=== PATIENT | female | born 1950 | race Caucasian/White ===

== ENCOUNTER 2017-03-02 09:35 | Emergency (ER) | payer MEDICARE, OTHER ==
--- NOTE | 2017-03-02 10:12 | PHYS DOC ---
General Chief Complaint: HAND PROBLEM Stated Complaint: HAND INJURY Time Seen by MD: 09:55 Source: patient Exam Limitations: no limitations Problems: History of Present Illness Initial Comments Patient is a 66-year-old female who comes in ED complaining of right hand pain. Patient states that yesterday she fell to her outstretched right hand hyperextending at the metacarpophalangeal joints. She has dorsal right hand and proximal phalanx pain and swelling. She's been taking Tylenol but the pain has persisted and she has come for evaluation to see if she broke anything. No numbness tingling weakness or radiating symptoms she can move all of her fingers at all of the joints. She denies any other injuries from the fall. Onset: yesterday Severity: moderate Pain/Injury Location: right 3rd finger, right 4th finger Method of Injury: fell, twisted Modifying Factors: worse with jarring, worse with movement Allergies: Coded Allergies: eucalyptus (Verified Allergy, Unknown, 03/02/17) Past Medical History Medical History: other (RA) Surgical History: noncontributory Social History Smoker: non-smoker Alcohol: none Drugs: none Review of Systems Constitutional: denies chills, denies fever Respiratory: denies cough, denies shortness of breath Cardiovascular: denies chest pain, denies palpitations Genitourinary: denies dysuria, denies frequency Musculoskeletal: see HPI Skin: see HPI Psychiatric/Neurological: see HPI Physical Exam General Appearance: WD/WN, no apparent distress Neck: non-tender, supple Cardiovascular/Respiratory: normal peripheral pulses, no respiratory distress Shoulder: normal inspection, non-tender, no evidence of injury Elbow/Forearm: normal inspection, non-tender, no evidence of injury Wrist: normal inspection, non-tender, no evidence of injury Hand: swelling (right hand: Third and fourth digits are swollen and bruised, ligaments and tendon complexes are intact no palpable bony deformity extremity is neurovascularly intact.) Neurologic/Tendon: normal sensation, normal motor functions, normal tendon functions, responds to pain, no evidence tendon injury Psychiatric: alert, oriented x 3 Skin: normal color, warm/dry Orders, Labs, Meds PATIENT: GIOVANNY QUINTEROS ACCOUNT: [id number] : 1950 LOCATION: ER AGE: 66 SEX: F EXAM STATUS: REG ER ORD. PHYSICIAN: SHARMAINE RUBALCAVA DO REASON: fall, pain PROCEDURE: HAND RIGHT 3V Right hand, 3 views, 03/02/2017: History: Fall, pain No fracture or dislocation is identified. There are mild degenerative changes at scattered interphalangeal joints. IMPRESSION: No acute bony abnormality is detected. DICTATED AND SIGNED BY: ALLISON CAMPOS MD DATE: 03/02/17 1022 CC: SHIRLEY ARGUETA DO; SHARMAINE RUBALCAVA DO ~ Right third finger splinted neurovascularly intact after splint placed. Departure Time of Disposition: 10:40 Disposition: 01 HOME, SELF-CARE Diagnosis: Sprain R 3-4 fingers, fall Condition: GOOD Patient Instructions: RICE - Routine Care for Injuries, [id number] Additional Instructions: SUMIT, see handout. Wear metal finger splint as needed. Prescription: Sterling 5 mg quantity 20 Follow-up with your doctor in 10-14 days for recheck. Return to ED with new or changing symptoms. SHARMAINE RUBALCAVA DO Mar 02, 2017 10:12
--- NOTE | 2017-03-02 10:26 | RAD ---
Right hand, 3 views, 03/02/2017: History: Fall, pain No fracture or dislocation is identified. There are mild degenerative changes at scattered interphalangeal joints. IMPRESSION: No acute bony abnormality is detected.
[2017-03-02] MEDS ORDERED: HYDR-971 PO (10:40)
[2017-03-02 10:48] VITALS: BP 123/69
== END 2017-03-02 10:48 | disposition home or self-care (01) ==
LOC: ER 09:35
DX: S63.632A Sprain of interphalangeal joint of right middle finger, initial encounter (principal); S63.634A Sprain of interphalangeal joint of right ring finger, initial encounter; M06.9 Rheumatoid arthritis, unspecified; Z91.048 Other nonmedicinal substance allergy status; W19.XXXA Unspecified fall, initial encounter; Y93.89 Activity, other specified; Y99.8 Other external cause status; Y92.89 Other specified places as the place of occurrence of the external cause
CPT/HCPCS: 29130; 73130; 99284-25

== ENCOUNTER 2018-11-12 08:59 | Emergency (ER) | payer MEDICARE, MEDICAID ==
[~2018-11-12] VITALS: Ht 162.6 cm; Wt 85.8 kg
[~2018-11-12 08:59] MED LIST: HYDR-3165 PO
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
[2018-11-12] MEDS ORDERED: KETOROLAC 60 MG/2 ML VIAL. IM ONE (10:00)
--- NOTE | 2018-11-12 10:22 | RAD ---
CT HEAD INDICATION: Headache for 5 weeks COMPARISON: None Available. Exposure: One or more of the following individualized dose reduction techniques were utilized for this examination: 1. Automated exposure control 2. Adjustment of the mA and/or kV according to patient size 3. Use of iterative reconstruction technique TECHNIQUE: 5 mm contiguous axial images were obtained from the skull base to the vertex in both bone and soft tissue algorithm. FINDINGS: Mild bilateral periventricular white matter hypodensities likely chronic small vessel ischemic disease. No evidence of acute intracranial hemorrhage. No extra-axial fluid collections. No mass effect or midline shift. Ventricular size is appropriate. Basal cisterns are patent. No fractures identified.Gonzales-white differentiation is preserved.Globes and orbits are within normal limits. Paranasal sinuses and mastoid air cells are clear. IMPRESSION: No acute intracranial findings. Electronically signed by: Osman Montez MD (11/12/2018 10:19 AM) [facility]
[2018-11-12] MEDS ORDERED: BUTA1TAB23 PO (11:48)
[2018-11-12 11:50] VITALS: BP 140/72
== END 2018-11-12 11:55 | disposition home or self-care (01) ==
LOC: ER 08:59
DX: R51 Headache (principal); E11.9 Type 2 diabetes mellitus without complications; Z88.8 Allergy status to other drugs, medicaments and biological substances
CPT/HCPCS: 70450; 96372; 99284; J1885

== ENCOUNTER → 2018-12-12 | Outpatient (CLI) | payer MEDICARE, MEDICAID ==
[2018-11-12 11:50] VITALS: BP 140/72
[~2018-12-12] MED LIST changes: +BUTA1TAB23 PO
--- NOTE | 2018-12-13 08:26 | RAD ---
EXAM: Ct Cervical Spine Without Iv Contrast CLINICAL HISTORY: Cervical radiculopathy COMPARISON: None available. TECHNIQUE: Helical CT of the cervical spine was performed. Axial, coronal and sagittal reformatted images were also performed. PQRS compliance statement - One or more of the following individualized dose reduction techniques were utilized for this study: 1. Automated exposure control 2. Adjustment of the mA and/or kV according to patient size 3. Use of iterative reconstruction technique FINDINGS: Vertebral body heights are preserved. Mild straightening of the normal cervical lordosis. Approximately 2 mm anterolisthesis of C7 on T1. Moderate disc height loss at C5-6 and C6-7 as well as C7-T1. Small anterior and posterior endplate osteophytes are seen most prominent C4-5, C5-6 and C6-7. Atlantodental degenerative changes are seen. Predental space is normal. No significant prevertebral soft tissue swelling. C2-C3: Mild uncovertebral hypertrophy and paracentral disc protrusion results in mild central canal stenosis without significant neural foraminal narrowing. C3-C4: Posterior disc osteophyte complex with left greater than right uncovertebral hypertrophy and advanced facet degenerative changes results in mild central canal stenosis, moderate to severe left neural foraminal narrowing and mild left neural foraminal narrowing. C4-C5: Small posterior disc osteophyte complex with left greater than right uncovertebral hypertrophy and severe left facet degenerative changes results in moderate left and mild right neural foraminal narrowing as well as mild central canal stenosis. C5-C6: Large posterior disc osteophyte complex with prominent uncovertebral hypertrophy and right paracentral posterior endplate proliferative change results in moderate central canal stenosis and moderate bilateral neural foraminal narrowing. C6-C7: Posterior disc osteophyte complex with bilateral uncovertebral hypertrophy results in mild central canal stenosis and moderate bilateral neural foraminal narrowing. C7-T1: Trace anterolisthesis of C7 on T1 with mild facet degenerative changes results in no significant central canal stenosis or neural foraminal narrowing. IMPRESSION: 1. Multilevel spondylosis as above, most prominent at C5-6 2. Negative acute fracture 3. Approximately 2 mm anterolisthesis of C7 on T1 with mild degenerative change. Electronically signed by: Clement Terrazas MD (12/13/2018 8:24 AM) [facility]
--- NOTE | 2018-12-13 08:34 | RAD ---
EXAM: CT lumbar spine without IV contrast CLINICAL HISTORY: Lumbar radiculopathy COMPARISON: None available. TECHNIQUE: Helical CT was performed through the lumbar spine. Axial, coronal and sagittal reformatted images were generated. PQRS compliance statement - One or more of the following individualized dose reduction techniques were utilized for this study: 1. Automated exposure control 2. Adjustment of the mA and/or kV according to patient size 3. Use of iterative reconstruction technique FINDINGS: There are 5 nonrib-bearing lumbar-type vertebral bodies. Straightening of the normal lumbar lordosis. Trace retrolisthesis of L5 on S1 and L3 on L4. Decreased bone mineral density. Vertebral body heights are preserved. Severe disc height loss at L2-3 and L4-5. Moderate to severe disc height loss at T12-L1, L1-L2, L5-S1 and L2 moderate disc height loss of L3-4. Multilevel endplate proliferative changes are seen. Degenerative changes between the posterior spinous processes of L3-4 with associated small cystic change may be seen with Baastrup's disease. T12-L1: No significant central canal stenosis or neural foraminal narrowing. L1-L2: Generalized disc bulge with ligamentum flavum hypertrophy and facet degenerative changes results in mild central canal stenosis and mild bilateral neural foraminal narrowing. L2-L3: Posterior disc osteophyte complex with generalized disc bulge, ligamentum flavum hypertrophy and facet degenerative changes results in mild central canal stenosis and mild bilateral neural foraminal narrowing. L3-L4: Generalized disc bulge, eccentric to the left with ligamentum flavum hypertrophy and facet degenerative changes and prominent epidural fat results in likely severe central canal stenosis with thecal sac measuring approximately 5-6 mm in AP dimension (series 2 image 57) with moderate left and mild right neural foraminal narrowing. L4-L5: Generalized disc bulge with diffuse endplate proliferative changes, ligamentum flavum hypertrophy and left greater than right facet degenerative changes also results in severe central canal stenosis with the thecal sac measuring approximately 7-8 mm in AP dimension, moderate to severe left and moderate right neural foraminal narrowing. L5-S1: Trace retrolisthesis of L5 on S1 with associated generalized disc bulge, ligamentum flavum hypertrophy and facet degenerative changes results in moderate left and moderate to severe right neural foraminal narrowing. Atherosclerotic calcifications of the aorta are seen. IMPRESSION: Multilevel spondylosis as described in detail above. This is most prominent at L3-4 and L4-5. Trace retrolisthesis of L5 on S1 and L3 and L4. Electronically signed by: Clement Terrazas MD (12/13/2018 8:31 AM) [facility]
== END | disposition home or self-care (01) ==
LOC: CT 16:46
PROVIDERS: ATTEND Psychiatry & Neurology Neurology
DX: M50.11 Cervical disc disorder with radiculopathy, high cervical region (principal); M47.22 Other spondylosis with radiculopathy, cervical region; M47.27 Other spondylosis with radiculopathy, lumbosacral region; M47.814 Spondylosis without myelopathy or radiculopathy, thoracic region; M48.02 Spinal stenosis, cervical region; M51.36 Other intervertebral disc degeneration, lumbar region; M48.07 Spinal stenosis, lumbosacral region; M53.87 Other specified dorsopathies, lumbosacral region; M25.78 Osteophyte, vertebrae; M89.38 Hypertrophy of bone, other site; I70.0 Atherosclerosis of aorta
CPT/HCPCS: 72125; 72131

== ENCOUNTER 2019-03-30 00:51 | Observation (INO) | payer MEDICARE, MEDICAID ==
[~2019-03-30] VITALS: Ht 162.6 cm; Wt 83.0 kg
--- NOTE | 2019-03-30 01:13 | PHYS DOC ---
Past History Past Medical History: Diabetes, High Cholesterol, Hypertension, Other Additional Past Medical Histor: TENSION HEADACHES Past Surgical History: Cholecystectomy, Knee Replacement, Other Additional Past Surgical Histo: BREAST REDUCTION Smoking: Non-smoker Alcohol Use: None Drug Use: None Adult General Chief Complaint Chief Complaint: CHEST PAIN HPI HPI 68-year-old female presents with chest pain which started tonight prior to arrival. Reports sharp pain underneath her left breast which is now resolved. Denies diaphoresis or shortness of air. Denies leg swelling or calf tenderness. Denies nausea or vomiting. Cardiac risk factors including DM, HTN, hyperchol, and family history. Patient also reports family history of DVT/PE. Review of Systems Review of Systems Constitutional: Denies fever or chills Eyes: Denies redness or eye pain HENT: Denies nasal congestion or sore throat Respiratory: Denies cough or shortness of breath Cardiovascular: Reports chest pain; denies palpitations GI: Denies abdominal pain, nausea, or vomiting : Denies dysuria or hematuria Musculoskeletal: Denies back pain or joint pain Integument: Denies rash or skin lesions Neurologic: Denies headache, focal weakness or sensory changes Complete systems were reviewed and found to be within normal limits, except as documented in this note. Current Medications Current Medications Current Medications Medications (Trade) Dose Ordered Sig/Nestor Start Time Stop Time Status Last Admin Dose Admin Aspirin (Adrian Aspirin) 325 mg 1X ONCE 03/30/19 01:15 03/30/19 01:16 Sodium Chloride 1,000 ml @ 1,000 mls/hr 1X ONCE 03/30/19 01:15 03/30/19 02:14 03/30/19 01:08 1,000 MLS/HR Allergies Allergies Allergies Coded Allergies Type Severity Reaction Last Updated Verified Ymxbqcd-Hsk-Eck Reductase Inhibitor Allergy Mild CRAMPS 03/30/19 Yes eucalyptus Allergy Unknown 03/02/17 Yes Physical Exam Physical Exam Constitutional: Well developed, well nourished, anxious, non-toxic appearance HENT: Normocephalic, atraumatic, oropharynx moist Eyes: Conjunctiva normal, no discharge Neck: Normal range of motion, no tenderness, supple Cardiovascular: Heart rate normal, regular rhythm Lungs & Thorax: Bilateral breath sounds clear to auscultation, no wheezing Abdomen: Soft, no tenderness Skin: Warm, dry, no erythema, no rash Extremities: No tenderness, ROM intact, no edema Neurologic: Alert and oriented X 3, no focal deficits noted Psychologic: Affect anxious, judgement normal Current Patient Data Vital Signs Vital Signs Date Time Temp Pulse Resp B/P (MAP) Pulse Ox O2 Delivery O2 Flow Rate FiO2 03/30/19 01:01 60 18 98 Room Air EKG EKG @0057 NSR at 60bpm, NO ST elevation, QRS 96ms, QT/QTc 408/408ms Radiology/Procedures Radiology/Procedures CXR 2 view (preliminary interpretation by ED physician) No acute process Course & Med Decision Making Course & Med Decision Making Pertinent Labs and Imaging studies reviewed. (See chart for details) Patient presents with chest pain. Cardiac risk factors noted. Patient does have family history of DVT/PE. EKG stable. Labs obtained and posted to chart. Hypomagnesemia addressed. Initial Troponin negative. D-dimer elevated. Creat elevated (improved in comparison to prior per [employer] review). Unable to obtain CTA due to poor GFR. Chest x-ray stable. VQ scan ordered for AM. HEART score 5. Patient requiring admission for further evaluation and treatment. Discussed with Dr. Brown (hospitalist) who is in agreement with admission. Discussed findings and plan with patient, who acknowledges understanding and agreement. Dragon Disclaimer Dragon Disclaimer This electronic medical record was generated, in whole or in part, using a voice recognition dictation system. Departure Departure: Impression: Primary Impression: Chest pain Additional Impressions: Hypomagnesemia Elevated d-dimer Disposition: ADMITTED INPATIENT Admitting Physician: Nithin Brown Condition: GUARDED Referrals: SHIRLEY ARGUETA DO (PCP) HEART Score for Chest Pain PTs The HEART Score for CP Pts HEART Score for Chest Pain: HEART Score for Chest Pain Response (Comments) Value History Moderately Suspicious 1 ECG Normal 0 Age > 65 2 Risk Factors >3 Risk Factors or Hx CAD 2 Troponin < Normal Limit 0 Total 5 Risk Factors: Risk Factors: DM, Current or recent (<one month) smoker, HTN, HLP, family history of CAD, obesity. Risk Scores: Score 0 - 3: 2.5% MACE over next 6 weeks - Discharge Home Score 4 - 6: 20.3% MACE over next 6 weeks - Admit for Clinical Observation Score 7 - 10: 72.7% MACE over next 6 weeks - Early Invasive Strategies Problem Qualifiers Primary Impression: Chest pain Chest pain type: unspecified Qualified Codes: R07.9 - Chest pain, unspecified BRANDON VELASQUEZ DO Mar 30, 2019 01:13
[2019-03-30] MEDS ORDERED: ASPIRIN 325 MG TABLET PO ONE (01:15)
[2019-03-30] MEDS ORDERED: IV NORMAL SALINE 1,000ML 1,000 ML IV ONE (01:15)
[2019-03-30 01:28] LABS: BASO % 0 % (0-3); EOS # 0.1 x10^3/uL (0.0-0.7); EOS % 2 % (0-3); HEMATOCRIT 35.6 % (36.0-47.0); HEMOGLOBIN 11.6 g/dL (12.0-15.5); LYMPH # 1.6 x10^3/uL (1.0-4.8); LYMPH % 27 % (24-48); MEAN CORPUSCULAR HEMOGLOBIN 30 pg (25-35); MEAN CORPUSCULAR HGB CONC 33 g/dL (31-37); MEAN CORPUSCULAR VOLUME 92 fL (79-100); MONO # 0.6 x10^3/uL (0.0-1.1); MONO % 10 % (0-9); NEUT # 3.7 x10^3uL (1.8-7.7); NEUT % 61 % (31-73); PLATELET COUNT 221 x10^3/uL (140-400); RED BLOOD COUNT 3.88 x10^6/uL (3.50-5.40); RED CELL DISTRIBUTION WIDTH 13.7 % (11.5-14.5); WHITE BLOOD COUNT 6.1 x10^3/uL (4.0-11.0)
[2019-03-30 01:53] LABS: ALBUMIN 3.4 g/dL (3.4-5.0); CALCIUM 8.5 mg/dL (8.5-10.1); CREATININE 1.7 mg/dL (0.6-1.0); GFR 29.8; MAGNESIUM 1.6 mg/dL (1.8-2.4); POTASSIUM 3.5 mmol/L (3.5-5.1); TOTAL BILIRUBIN 0.3 mg/dL (0.2-1.0); TOTAL PROTEIN 6.7 g/dL (6.4-8.2)
[2019-03-30] MEDS ORDERED: MAGNESIUM SULFATE 2GM 50 ML IV ONE (02:30)
[2019-03-30] MEDS ORDERED: DEXTROSE 50% 25 GM / 50ML DISP.SYRIN. IV PRN (02:30)
[2019-03-30] MEDS ORDERED: ONDANSETRON PF 4 MG/2 ML VIAL. IV PRN (02:30)
--- NOTE | 2019-03-30 03:11 | RAD ---
CHEST PA LATERAL History: Chest pain Comparison: None. Findings: No consolidation or pleural effusion. Normal heart size. Surgical clips upper abdomen. No pneumothorax. DISH related changes of the thoracic spine. Impression: 1. No acute cardiopulmonary process. Electronically signed by: Alexandr Mendez DO (03/30/2019 3:08 AM) [id number]
[2019-03-30 04:00] VITALS: BP 150/80
[2019-03-30] MEDS ORDERED: CYCL-331 PO (05:46)
[2019-03-30] MEDS ORDERED: CITA20TA6 PO (05:46)
[2019-03-30] MEDS ORDERED: LOSA100T14 PO (05:46)
[2019-03-30] MEDS ORDERED: OXYC5TAB4 PO (05:46)
[2019-03-30] MEDS ORDERED: DUREZOL OS (05:46)
[2019-03-30] MEDS ORDERED: MOXI3DRO OS (05:46)
[2019-03-30] MEDS ORDERED: SITA50TA PO (05:46)
[2019-03-30] MEDS ORDERED: ESOM40CA PO (05:46)
[2019-03-30] MEDS ORDERED: HYDR12.572 PO (05:46)
[2019-03-30] MEDS ORDERED: GABA100C81 PO (05:46)
[2019-03-30] MEDS ORDERED: METO-239 PO (05:46)
[2019-03-30] MEDS ORDERED: BROM5DRO3 OS (05:46)
[2019-03-30] MEDS ORDERED: GLIM4TAB4 PO (05:46)
[2019-03-30] MEDS ORDERED: INSULIN LISPRO 300 UNITS/3 ML VIAL. SQ SCH (08:00)
[2019-03-30 08:42] VITALS: BP 128/73
[2019-03-30 11:13] VITALS: BP_SYST 122; BP_SYST 133; BP_DIAS 61; BP_DIAS 71
--- NOTE | 2019-03-30 13:27 | SSS ---
ADMIT DATE: 03/30/2019 HISTORY OF PRESENT ILLNESS: The patient is a 68-year-old female patient who came to the Emergency Room early this morning with a complaint of chest pain that started just minutes prior to arrival. She described it as sharp underneath her left breast that has resolved by the time she arrived to the hospital. Denied any shortness of breath. Denied any nausea, vomiting, diaphoresis or referral of the pain. She has multiple risk factors for coronary artery disease. She also reports family history of DVT and PE. She was investigated extensively. Her EKG showed that she was in normal sinus rhythm at 60 beats per minute. Her chest x-ray was unremarkable. Her first set of cardiac enzyme was less than 0.017. She has 2 more sets of cardiac enzymes that rule out acute myocardial infarction and a decision was made to discharge her home to follow with her primary digital analyst. PAST MEDICAL HISTORY: Significant for hypertension, hyperlipidemia, type 2 diabetes mellitus, chronic kidney disease and osteoarthritis. PAST SURGICAL HISTORY: Significant for right total knee arthroplasty, left eye cataract extraction, cholecystectomy, appendectomy and breast reduction surgery. ALLERGIES: SHE IS ALLERGIC TO STATINS AND EUCALYPTUS. MEDICATIONS: She is currently on following medications: She is on cyclobenzaprine 10 mg as needed, metoprolol succinate 25 mg daily, losartan potassium 100 mg daily, hydrocodone/APAP for Esmond one tablet every 6 hours as needed, oxycodone 5 mg, she takes 10 mg every 6 hours as needed. She is on Fioricet 1 tablet every 4 hours as needed for headache, gabapentin 300 mg twice a day, citalopram hydrobromide 20 mg daily, hydrochlorothiazide 25 mg once a day, moxifloxacin 1 drop to both eyes twice a day, bromfenac sodium for BromSite one drop to the left eye twice a day. She is on Nexium 40 mg once a day, sitagliptin phosphate for Januvia 50 mg once a day, glimepiride 4 mg daily, Durezol 1 drop to left eye daily. FAMILY HISTORY: She has 4 brothers, one has coronary artery disease and is status post PCI with stent deployment at the age of 51. One sister has SLE and she is 53 years old. The other sister has diabetes. Her father at age of 87 because of COPD and mother at age of 77 because of COPD complication. SOCIAL HISTORY: She is , lives alone. She has 2 sons and 1 daughter. She never smoked, does not drink alcohol or use any recreational drugs. She is a retired registered nurse. REVIEW OF SYSTEMS: Unremarkable. PHYSICAL EXAMINATION: GENERAL: When I examined her, she looked well and was clearly in no apparent respiratory distress, slightly pale, but no jaundice, cyanosis or thyromegaly. No jugular venous distention. No limb edema. VITAL SIGNS: Her heart rate was 60, blood pressure 128/73, temperature was 97.8, respiratory rate was 18 and oxygen saturation was 96%. HEAD, EYES, EARS, NOSE AND THROAT: Showed normocephalic, atraumatic. NECK: Supple. HEART: Showed normal first and second heart sounds. No gallop or murmur. CHEST: Clear to auscultation. No crepitation or rhonchi. ABDOMEN: Distended, soft, nontender. No guarding or rigidity. No organomegaly. All hernial orifices intact. Bowel sounds normal. NEUROLOGIC: She was awake, alert, responding appropriately. All cranial nerves intact. She moves extremities without difficulty. She ambulates without assistance or assistive devices. LABORATORY DATA: Showed a white cell count 6100, hemoglobin 11.6, hematocrit 35.6, MCV 92 and platelet count 221,000. Her chemistry showed a serum sodium 140, potassium 3.5, chloride 105, bicarbonate 24, anion gap of 11, BUN 33, creatinine 1.7, estimated GFR was 29 mL per minute, glucose 172, calcium was 8.5, magnesium was 1.6. Total bilirubin, AST, ALT, alkaline phosphatase were normal. Total protein was 6.7, albumin was 3.4. Lipase was 321. Prothrombin time, INR and aPTT were normal. D-dimer was high at 0.8. Chest x-ray showed no consolidation or pleural effusion, normal heart size. Surgical clips in upper abdomen. No pneumothorax. No acute cardiopulmonary process. She has 3 sets of cardiac enzymes that ruled out myocardial infarction. ASSESSMENT AND PLAN: Chest pain, atypical, lasted only for a few seconds, acute myocardial infarction ruled out. Has multiple other medical problems including type 2 diabetes, hypertension, hyperlipidemia, osteoarthritis and chronic kidney disease. She apparently had followed with her primary digital analyst and apparently had a stress test done about 2 years ago. The patient was discharged and advised to follow with her primary digital analyst and primary care physician and continue all her current medications. ANTIONETTE LORD MD DR: MILA/didier JOB#: [id number] / [id number]
--- NOTE | 2019-03-31 03:54 | EKG ---
[address] [address] Test Date: 2019-03-30 Test Time: 00:57:09 Pat Name: GIOVANNY QUINTEROS Department: Room: Gender: F Assurance Analyst: : 1950 Requested By: BRANDON VELASQUEZ Order Number: [id number] Reading MD: Measurements Intervals [place] Rate: 60 P: 4 TX: 136 QRS: 10 QRSD: 96 T: 25 QT: 408 QTc: 408 Interpretive Statements SINUS RHYTHM NORMAL ECG RI6.01 No previous ECG available for comparison
== END 2019-03-30 13:10 | disposition home or self-care (01) ==
LOC: ER 00:51 → 1 SOUTH 02:33
PROVIDERS: ADMIT Internal Medicine; ATTEND Internal Medicine
DX: R07.89 Other chest pain (principal); E83.42 Hypomagnesemia; R79.1 Abnormal coagulation profile; I12.9 Hypertensive chronic kidney disease with stage 1 through stage 4 chronic kidney disease, or unspecified chronic kidney disease; E11.22 Type 2 diabetes mellitus with diabetic chronic kidney disease; N18.9 Chronic kidney disease, unspecified; M19.90 Unspecified osteoarthritis, unspecified site; E78.5 Hyperlipidemia, unspecified; E78.00 Pure hypercholesterolemia, unspecified; Z86.718 Personal history of other venous thrombosis and embolism; Z86.711 Personal history of pulmonary embolism; Z96.651 Presence of right artificial knee joint; Z98.42 Cataract extraction status, left eye; Z90.49 Acquired absence of other specified parts of digestive tract; Z79.84 Long term (current) use of oral hypoglycemic drugs; Z79.899 Other long term (current) drug therapy; Z88.8 Allergy status to other drugs, medicaments and biological substances
CPT/HCPCS: 36415; 71046; 80053; 82553; 82947; 83690; 83735; 83880; 84484; 85025; 85379; 85610; 85730; 93005; 96365; G0378; G0379; J3475; J1815; J7030

== ENCOUNTER 2019-06-04 10:00 | Emergency (ER) | payer MEDICARE, MEDICAID ==
[~2019-06-04] VITALS: Ht 162.6 cm; Wt 85.8 kg
[~2019-06-04 10:00] MED LIST changes: +BROM5DRO3 OS; +CITA20TA6 PO; +CYCL-331 PO; +DUREZOL OS; +ESOM40CA PO; +GABA100C81 PO; +GLIM4TAB8 PO; +HYDR12.572 PO; +LOSA100T14 PO; +METO-239 PO; +MOXI3DRO OS; +OXYC5TAB4 PO; +SITA50TA PO
[2019-06-04 10:16] VITALS: BP 150/78
[2019-06-04] MEDS ORDERED: AMOX1TAB61 PO (10:22)
--- NOTE | 2019-06-04 10:32 | PHYS DOC ---
Past History Past Medical History: Diabetes, High Cholesterol, Hypertension, Other Additional Past Medical Histor: TENSION HEADACHES Past Surgical History: Cholecystectomy, Knee Replacement, Other Additional Past Surgical Histo: BREAST REDUCTION Smoking: Non-smoker Alcohol Use: None Drug Use: None Adult General Chief Complaint Chief Complaint: FOOT INJURY PAIN HPI HPI Patient is a 69-year-old female presenting with left foot and redness. She did go sledding over the weekend she was wearing boots for about 4 hours and then over the last couple of days she noticed some medial left foot redness and pain just underneath the medial malleolus no fever no trauma she has not fallen down. She doesn't history of diabetes she does say she has neuropathy she does take Lantus and multiple other medications Review of Systems Review of Systems Constitutional: Denies fever or chills [] Eyes: Denies change in visual acuity, redness, or eye pain [] HENT: Denies nasal congestion or sore throat [] Neurologic: Denies headache, focal weakness or sensory changes [] Endocrine: Denies polyuria or polydipsia [] All other systems were reviewed and found to be within normal limits, except as documented in this note. Allergies Allergies Allergies Coded Allergies Type Severity Reaction Last Updated Verified Ibrxxkj-Rvr-Nfk Reductase Inhibitor Allergy Mild CRAMPS 03/30/19 Yes eucalyptus Allergy Unknown 03/02/17 Yes Physical Exam Physical Exam Constitutional: Well developed, well nourished, no acute distress, non-toxic appearance. [] HENT: Normocephalic, atraumatic, bilateral external ears normal, oropharynx moist, no oral exudates, nose normal. [] Eyes: PERRLA, EOMI, conjunctiva normal, no discharge. [] Pulmonary: Normal respiratory effort no increased work of breathing no obvious chest wall trauma Abdomen: Bowel sounds normal, soft, no tenderness, no masses, no pulsatile masses. [] Skin: There is an approximately 2 x 2 centimeters area of erythema with some warmth really no fluctuance minimal induration mildly tender to the medial aspect of the left foot there is no skin breakdown it is just underneath the medial malleolus] Back: No tenderness, no CVA tenderness. [] Extremities: No edema or calf tenderness or swelling Neurologic: Alert and oriented X 3, normal motor function, normal sensory function, no focal deficits noted. [] Psychologic: Affect normal, judgement normal, mood normal. [] Current Patient Data Vital Signs Vital Signs Date Time Temp Pulse Resp B/P (MAP) Pulse Ox O2 Delivery O2 Flow Rate FiO2 06/04/19 10:16 97.8 62 16 98 Room Air EKG EKG [] Radiology/Procedures Radiology/Procedures [] Course & Med Decision Making Course & Med Decision Making Pertinent Labs and Imaging studies reviewed. 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 Dragon Disclaimer Dragon Disclaimer This electronic medical record was generated, in whole or in part, using a voice recognition dictation system. Departure Departure: Impression: Primary Impression: Cellulitis Disposition: HOME, SELF-CARE Condition: STABLE Patient Instructions: Cellulitis, Ppdu-nx-Sdzs Scripts Amoxicillin/Potassium Clav (AUGMENTIN 875-125 TABLET) 1 Each Tablet 1 TAB PO BID for cellulitis for 10 Days, #20 TAB 0 Refills Prov: KISHA CARRILLO MD 06/04/19 KISHA CARRILLO MD Jun 04, 2019 10:32
== END 2019-06-04 10:30 | disposition home or self-care (01) ==
LOC: ER 10:00
DX: L03.116 Cellulitis of left lower limb (principal); E11.9 Type 2 diabetes mellitus without complications; E78.00 Pure hypercholesterolemia, unspecified; I10 Essential (primary) hypertension; Z88.8 Allergy status to other drugs, medicaments and biological substances
CPT/HCPCS: 99283

== ENCOUNTER → 2019-06-26 | Outpatient (CLI) | payer MEDICARE, MEDICAID ==
[2019-06-04 10:16] VITALS: BP 150/78
[~2019-06-26] MED LIST changes: +AMOX1TAB61 PO
--- NOTE | 2019-06-26 13:17 | RAD ---
EXAM: CT HEAD WITHOUT CONTRAST. HISTORY: Headache. TECHNIQUE: Computed tomography of the head was performed without intravenous contrast. One or more of the following individualized dose reduction techniques were utilized for this examination: 1. Automated exposure control. 2. Adjustment of the mA and/or kV according to patient size. 3. Use of iterative reconstruction technique. COMPARISON: 11/12/2018. FINDINGS: There is no intracranial hemorrhage. Gonzales-white differentiation is preserved. Prominence of the lateral ventricles and hemispheric sulci indicates mild atrophy for patient age. The visualized paranasal sinuses appear clear. The orbits are unremarkable. The temporal bones are unremarkable. The calvarium reveals no suspicious lesions. There are atherosclerotic calcifications of the internal carotid and vertebral arteries. IMPRESSION: 1. No acute intracranial findings. Electronically signed by: Dirk Patel MD (06/26/2019 1:14 PM) [id number]
== END | disposition home or self-care (01) ==
LOC: CT 12:28
PROVIDERS: ATTEND Family Medicine
DX: I65.23 Occlusion and stenosis of bilateral carotid arteries (principal)
CPT/HCPCS: 70450

== ENCOUNTER 2019-12-01 15:03 | Emergency (ER) | payer MEDICAID, MEDICARE ==
[~2019-12-01] VITALS: Ht 160 cm; Wt 88.9 kg
--- NOTE | 2019-12-01 15:31 | PHYS DOC ---
Past History Past Medical History: Diabetes, Migraines Additional Past Medical Histor: TENSION HEADACHES Past Surgical History: Cholecystectomy, Tubal ligation Additional Past Surgical Histo: BREAST REDUCTION Smoking: Non-smoker Alcohol Use: None Drug Use: None General Adult EDM: Chief Complaint: MECHANICAL FALL HPI: HPI: Patient is a 69 year old female who presents for evaluation of left elbow and shoulder pain. Patient had a mechanical fall just before arrival. She has a large abrasion to that elbow is complaining of left chest wall pain and shoulder pain. She denied hitting her head nor does she have any neck pain. She had no symptoms prior to the fall. Patient is unable to raise her arm above her head due to pain. She clearly states that her tetanus shot is up-to-date. Review of Systems: Review of Systems: Constitutional: Denies fever or chills Eyes: Denies change in visual acuity HENT: Denies nasal congestion or sore throat Respiratory: Denies cough or shortness of breath Cardiovascular: Denies chest pain or edema GI: Denies abdominal pain, nausea, vomiting, bloody stools or diarrhea : Denies dysuria Musculoskeletal: Denies back pain left shoulder and elbow pain Integument: Denies rash, abrasion Neurologic: Denies headache, focal weakness or sensory changes Endocrine: Denies polyuria or polydipsia Lymphatic: Denies swollen glands Psychiatric: Denies depression or anxiety Heart Score: Risk Factors: Risk Factors: DM, Current or recent (<one month) smoker, HTN, HLP, family history of CAD, obesity. Risk Scores: Score 0 - 3: 2.5% MACE over next 6 weeks - Discharge Home Score 4 - 6: 20.3% MACE over next 6 weeks - Admit for Clinical Observation Score 7 - 10: 72.7% MACE over next 6 weeks - Early Invasive Strategies Allergies: Allergies: Allergies Coded Allergies Type Severity Reaction Last Updated Verified Aowicdt-Nlo-Mns Reductase Inhibitor Allergy Mild CRAMPS 12/01/19 Yes eucalyptus Allergy Unknown 12/01/19 Yes Physical Exam: PE: Constitutional: Well developed, well nourished, mild acute distress, non-toxic appearance. [] HENT: Normocephalic, atraumatic, bilateral external ears normal, oropharynx moist, no oral exudates, nose normal. [] Eyes: PERRL, EOMI, conjunctiva normal, no discharge. [] Neck: Normal range of motion, no tenderness, supple, no stridor. [] Cardiovascular:Heart rate regular rhythm, no murmur [] Lungs & Thorax: Bilateral breath sounds clear to auscultation [] Abdomen: Bowel sounds normal, soft, no tenderness, no masses, no pulsatile masses. [] Skin: Warm, dry, no erythema, no rash, abrasion left elbow. [] Back: No tenderness. [] Extremities: moderate tenderness, no cyanosis, no clubbing, ROM left shoulder limited due to pain, mild edema. [] Neurologic: Alert and oriented, normal motor function, normal sensory function, no focal deficits noted. [] Psychologic: Affect normal, judgement normal, mood normal. [] Current Patient Data: Vital Signs: Vital Signs Date Time Temp Pulse Resp B/P (MAP) Pulse Ox O2 Delivery O2 Flow Rate FiO2 12/01/19 15:18 98.0 59 20 140/60 (86) 97 Room Air EKG: EKG: [] Radiology/Procedures: Radiology/Procedures: [place] [address] IMAGING REPORT Signed PATIENT: GIOVANNY QUINTEROS ACCOUNT: [id number] : 1950 LOCATION: ER AGE: 69 SEX: F EXAM STATUS: REG ER ORD. PHYSICIAN: CHAD DODGE DO REASON: fall, injury, left upper lobe chest pain PROCEDURE: CHEST AP ONLY CHEST AP ONLY History: Reason: fall, injury, left upper lobe chest pain / Spl. Instructions: / History: Comparison: None. Findings: No consolidation or pleural effusion. Normal heart size. No pneumothorax. Impression: 1. No acute cardiopulmonary process. Electronically signed by: Alexandr Mendez DO (12/01/2019 3:48 PM) [id number] DICTATED AND SIGNED BY: ALEXANDR MENDEZ DO DATE: 12/01/19 1548 CC: SHIRLEY ARGUETA DO; CHAD DODGE DO ~ [] Impressions: [address] [id number] IMAGING REPORT Signed PATIENT: GIOVANNY QUINTEROS ACCOUNT: [id number] : 1950 LOCATION: ER AGE: 69 SEX: F EXAM STATUS: REG ER ORD. PHYSICIAN: CHAD DODGE DO REASON: fall, injury, left elbow pain PROCEDURE: ELBOW LEFT 3V ELBOW LEFT 3V History: Reason: fall, injury, left elbow pain / Spl. Instructions: / History: Technique: 3 views left elbow. Comparison: None. Findings: Normal alignment. No fracture. No significant elbow joint effusion. Soft tissues unremarkable. Impression: 1. No acute osseous abnormality. Electronically signed by: Alexandr Mendez DO (12/01/2019 3:44 PM) [id number] DICTATED AND SIGNED BY: ALEXANDR MENDEZ DO DATE: 12/01/197 CC: SHIRLEY ARGUETA DO; CHAD DODGE DO ~ [place] [address] IMAGING REPORT Signed PATIENT: GIOVANNY QUINTEROS ACCOUNT: [id number] : 1950 LOCATION: ER AGE: 69 SEX: F EXAM STATUS: REG ER ORD. PHYSICIAN: CHAD DODGE DO REASON: fall, injury, left shoulder pain PROCEDURE: SHOULDER 2+V LEFT SHOULDER 2+V LEFT History: Reason: fall, injury, left shoulder pain / Spl. Instructions: / History: Technique: 3 views left shoulder. Comparison: None. Findings: Acute comminuted left posterior lateral humeral head fracture. No dislocation. Mild acromioclavicular DJD. Left basilar calcified ovary nodule, likely prior granulomatous disease. Impression: 1. Acute comminuted left posterior lateral humeral head fracture. Electronically signed by: Alexandr Mendez DO (12/01/2019 3:47 PM) [id number] DICTATED AND SIGNED BY: ALEXANDR MENDEZ DO DATE: 12/01/192 CC: SHIRLEY ARGUETA DO; CHAD DODGE DO ~ Course & Med Decision Making: Course & Med Decision Making Pertinent Labs and Imaging studies reviewed. (See chart for details) [] Dragon Disclaimer: Dragon Disclaimer: This electronic medical record was generated, in whole or in part, using a voice recognition dictation system. 1550 stable, single be given for comfort. Patient has a proximal left humerus fracture. She states he is leaving town in about 4 days. She will call and see Dr. Thomason in the office as soon as possible. Patient recommended to have no use of her left shoulder until cleared by her doctor. She will likely need physical therapy on that broken left humerus. Patient already has oxycodone she takes at home for chronic pain Departure Departure: Impression: Primary Impression: Fracture of proximal end of left humerus Qualified Codes: S42.202A - Unspecified fracture of upper end of left humerus, initial encounter for closed fracture Additional Impression: Left elbow contusion Qualified Codes: S50.02XA - Contusion of left elbow, initial encounter Disposition: HOME/RESIDENCE PRIOR TO ADM Condition: STABLE Referrals: SHIRLEY ARGUETA DO (PCP) GIOVANNI THOMASON MD Patient Instructions: Shoulder Fracture (Proximal Humerus or Glenoid)-[facility] Additional Instructions: Rest, ice and elevate the injured left shoulder. You have a fracture to the backside of your upper left humerus. Call and see your orthopedic surgeon right away and follow-up Justification of Admission: Justification of Admission: Justification of Admission Dx: N/A CHAD DODGE DO Dec 01, 2019 15:30
[2019-12-01 15:38] VITALS: BP 111/53
--- NOTE | 2019-12-01 15:47 | RAD ---
ELBOW LEFT 3V History: Reason: fall, injury, left elbow pain / Spl. Instructions: / History: Technique: 3 views left elbow. Comparison: None. Findings: Normal alignment. No fracture. No significant elbow joint effusion. Soft tissues unremarkable. Impression: 1. No acute osseous abnormality. Electronically signed by: Alexandr Mendez DO (12/01/2019 3:44 PM) [id number]
--- NOTE | 2019-12-01 15:50 | RAD ---
SHOULDER 2+V LEFT History: Reason: fall, injury, left shoulder pain / Spl. Instructions: / History: Technique: 3 views left shoulder. Comparison: None. Findings: Acute comminuted left posterior lateral humeral head fracture. No dislocation. Mild acromioclavicular DJD. Left basilar calcified ovary nodule, likely prior granulomatous disease. Impression: 1. Acute comminuted left posterior lateral humeral head fracture. Electronically signed by: Alexandr Mendez DO (12/01/2019 3:47 PM) [id number]
--- NOTE | 2019-12-01 15:51 | RAD ---
CHEST AP ONLY History: Reason: fall, injury, left upper lobe chest pain / Spl. Instructions: / History: Comparison: None. Findings: No consolidation or pleural effusion. Normal heart size. No pneumothorax. Impression: 1. No acute cardiopulmonary process. Electronically signed by: Alexandr Mendez DO (12/01/2019 3:48 PM) [id number]
[2019-12-01] MEDS ORDERED: BACITRACIN ZINC TOPICAL OINT PACKET. TP ONE (16:00)
== END 2019-12-01 16:28 | disposition home or self-care (01) ==
LOC: ER 15:03
DX: S42.292A Other displaced fracture of upper end of left humerus, initial encounter for closed fracture (principal); S50.02XA Contusion of left elbow, initial encounter; E11.9 Type 2 diabetes mellitus without complications; G43.909 Migraine, unspecified, not intractable, without status migrainosus; Z90.49 Acquired absence of other specified parts of digestive tract; Z98.51 Tubal ligation status; Z98.890 Other specified postprocedural states; Z88.8 Allergy status to other drugs, medicaments and biological substances; W18.39XA Other fall on same level, initial encounter; Y93.89 Activity, other specified; Y92.89 Other specified places as the place of occurrence of the external cause; Y99.8 Other external cause status
CPT/HCPCS: 71045; 73030; 73080; 99284

== ENCOUNTER 2020-01-10 07:27 | Emergency (ER) | payer MEDICAID, MEDICARE ==
[~2020-01-10] VITALS: Ht 160 cm; Wt 88.9 kg
[2020-01-10 07:40] VITALS: BP 145/65
--- NOTE | 2020-01-10 07:55 | PHYS DOC ---
Past History Past Medical History: Diabetes, Migraines Additional Past Medical Histor: TENSION HEADACHES Past Surgical History: Cholecystectomy, Tubal ligation Additional Past Surgical Histo: BREAST REDUCTION Smoking: Non-smoker Alcohol Use: None Drug Use: None General Adult EDM: Chief Complaint: SHOULDER INJURY HPI: HPI: 69-year-old female presents with right shoulder pain. The patient was carrying soda into her house yesterday. She went to kick the door open with her foot and lost her balance and fell forward. She hit her right shoulder against the bottom of the door frame. She assumed that she would be sore today, but she is now unable to fully lift her arm at the shoulder. The patient fell a week or 2 ago and injured her left shoulder. She had the same symptoms of being unable to fully abduct that shoulder and she has a tendon rupture. She is scheduled to see orthopedics for that shoulder on Sunday. She is concerned she may have caused the same injury to the right shoulder. She also had a small bone chip wi th the left shoulder so she presents today to make sure she does not have a fracture in the right shoulder. She does not have any other complaints at this time. Review of Systems: Review of Systems: Constitutional: Denies fever or chills Eyes: Denies change in visual acuity HENT: Denies nasal congestion or sore throat Respiratory: Denies cough or shortness of breath Cardiovascular: Denies chest pain or edema GI: Denies abdominal pain, nausea, vomiting, bloody stools or diarrhea : Denies dysuria Musculoskeletal: Right shoulder pain Integument: Denies rash Neurologic: Denies headache, focal weakness or sensory changes Endocrine: Denies polyuria or polydipsia Lymphatic: Denies swollen glands Psychiatric: Denies depression or anxiety Heart Score: Risk Factors: Risk Factors: DM, Current or recent (<one month) smoker, HTN, HLP, family history of CAD, obesity. Risk Scores: Score 0 - 3: 2.5% MACE over next 6 weeks - Discharge Home Score 4 - 6: 20.3% MACE over next 6 weeks - Admit for Clinical Observation Score 7 - 10: 72.7% MACE over next 6 weeks - Early Invasive Strategies Allergies: Allergies: Allergies Coded Allergies Type Severity Reaction Last Updated Verified Qmfymfc-Oxl-Iya Reductase Inhibitor Allergy Mild CRAMPS 12/01/19 Yes eucalyptus Allergy Unknown 12/01/19 Yes Physical Exam: PE: Constitutional: Well developed, well nourished, no acute distress, non-toxic appearance. [] HENT: Normocephalic, atraumatic, bilateral external ears normal, oropharynx moist, no oral exudates, nose normal. [] Eyes: PERRLA, EOMI, conjunctiva normal, no discharge. [] Neck: Normal range of motion, no tenderness, supple, no stridor. [] Cardiovascular:Heart rate regular rhythm, no murmur [] Lungs & Thorax: Bilateral breath sounds clear to auscultation [] Abdomen: Bowel sounds normal, soft, no tenderness, no masses, no pulsatile masses. [] Skin: Warm, dry, no erythema, no rash. [] Back: No tenderness, no CVA tenderness. [] Extremities: Unable to flex or abduct the right shoulder. She can partially hold abduction at 90%, but the arm slowly falls. [] Neurologic: Alert and oriented X 3, normal motor function, normal sensory function, no focal deficits noted. [] Psychologic: Affect normal, judgement normal, mood normal. [] Current Patient Data: Vital Signs: Vital Signs Date Time Temp Pulse Resp B/P (MAP) Pulse Ox O2 Delivery O2 Flow Rate FiO2 01/10/20 07:40 98.4 61 18 145/65 (91) 99 EKG: EKG: [] Radiology/Procedures: Radiology/Procedures: [] Course & Med Decision Making: Course & Med Decision Making Pertinent Labs and Imaging studies reviewed. (See chart for details) The patient's x-ray is negative for fracture. I have advised supportive care for now. She will follow-up with orthopedics on Sunday as previously scheduled. [] Dragon Disclaimer: Dragon Disclaimer: This electronic medical record was generated, in whole or in part, using a voice recognition dictation system. Departure Departure: Impression: Primary Impression: Fall from slip, trip, or stumble Qualified Codes: W01.0XXA - Fall on same level from slipping, tripping and stumbling without subsequent striking against object, initial encounter Additional Impression: Right shoulder pain Qualified Codes: M25.511 - Pain in right shoulder Disposition: 01 HOME/RESIDENCE PRIOR TO ADM Condition: STABLE Referrals: SHIRLEY ARGUETA DO (PCP) Patient Instructions: Shoulder Pain, Dlxk-sa-Kknk Justification of Admission: Justification of Admission: Justification of Admission Dx: N/A KUMAR REDMOND DO Jan 10, 2020 07:55
--- NOTE | 2020-01-10 08:30 | RAD ---
SHOULDER 2+V RIGHT DATE: 01/10/2020 7:37 AM INDICATION: fall, pain COMPARISON: None. FINDINGS: Bones: There is no evidence of acute fracture or dislocation. Joints: Moderate degenerative changes of the acromioclavicular joint. Glenohumeral joint is congruent. Miscellaneous: No abnormal soft tissue calcifications in the shoulder. IMPRESSION: No evidence of acute fracture. Electronically signed by: Kan Dias MD (01/10/2020 8:27 AM) [id number]
== END 2020-01-10 08:26 | disposition home or self-care (01) ==
LOC: ER 07:27
DX: M25.511 Pain in right shoulder (principal); E11.9 Type 2 diabetes mellitus without complications; G43.909 Migraine, unspecified, not intractable, without status migrainosus; Z88.8 Allergy status to other drugs, medicaments and biological substances; W01.0XXA Fall on same level from slipping, tripping and stumbling without subsequent striking against object, initial encounter; Y93.89 Activity, other specified; Y92.89 Other specified places as the place of occurrence of the external cause; Y99.8 Other external cause status
CPT/HCPCS: 73030; 99283

== ENCOUNTER 2020-03-21 08:24 | Emergency (ER) | payer MEDICAID, MEDICARE ==
[~2020-03-21] VITALS: Ht 152.4 cm; Wt 88.9 kg
[2020-03-21 08:40] VITALS: BP 99/78
--- NOTE | 2020-03-21 08:58 | PHYS DOC ---
Past History Past Medical History: Diabetes, Migraines Additional Past Medical Histor: TENSION HEADACHES Past Surgical History: Cholecystectomy, Tubal ligation Additional Past Surgical Histo: BREAST REDUCTION Smoking: Non-smoker Alcohol Use: None Drug Use: None General Adult EDM: Chief Complaint: MECHANICAL FALL HPI: HPI: 69-year-old female presents with right shoulder pain. She has fallen onto the right shoulder a couple times in the left last few weeks. Her shoulder improved in 2 to 3 days after the first fall. She fell a second time directly onto the right arm 3 days ago and it is no better at this time. She has a bad left shoulder for which she is seeing a specialist soon. She had some hydrocodone left from that injury and has taken 1 of those today for her right shoulder pain. She is able to abduct, but has pain with flexion past 50 degrees. It is tender to palpation on the superior lateral aspect. She denies any other concerns or complaints at this time. Review of Systems: Review of Systems: Constitutional: Denies fever or chills Eyes: Denies change in visual acuity HENT: Denies nasal congestion or sore throat Respiratory: Denies cough or shortness of breath Cardiovascular: Denies chest pain or edema GI: Denies abdominal pain, nausea, vomiting, bloody stools or diarrhea : Denies dysuria Musculoskeletal: Right shoulder pain Integument: Denies rash Neurologic: Denies headache, focal weakness or sensory changes Endocrine: Denies polyuria or polydipsia Lymphatic: Denies swollen glands Psychiatric: Denies depression or anxiety Allergies: Allergies: Allergies Coded Allergies Type Severity Reaction Last Updated Verified Nielpqr-Hsz-Stw Reductase Inhibitor Allergy Mild CRAMPS 12/01/19 Yes eucalyptus Allergy Unknown 12/01/19 Yes Physical Exam: PE: Constitutional: Well developed, well nourished, no acute distress, non-toxic appearance. [] HENT: Normocephalic, atraumatic, bilateral external ears normal, oropharynx mois t, no oral exudates, nose normal. [] Eyes: PERRLA, EOMI, conjunctiva normal, no discharge. [] Neck: Normal range of motion, no tenderness, supple, no stridor. [] Cardiovascular: Heart rate regular rhythm, no murmur [] Lungs & Thorax: Bilateral breath sounds clear to auscultation [] Abdomen: Bowel sounds normal, soft, no tenderness, no masses, no pulsatile masses. [] Skin: Warm, dry, no erythema, no rash. [] Back: No tenderness, no CVA tenderness. [] Extremities: Tenderness to palpation over the anterior shoulder, no bruising; pain with flexion. Passive flexion up to 90 degrees without pain. Abduction to 90 degrees with some discomfort. Negative Yergason. [] Neurologic: Alert and oriented X 3, normal motor function, normal sensory function, no focal deficits noted. [] Psychologic: Affect normal, judgement normal, mood normal. [] EKG: EKG: [] Radiology/Procedures: Radiology/Procedures: [] Impressions: Examination: 2 views of the right shoulder HISTORY: History of fall, pain COMPARISON: 01/10/2020 FINDINGS: The humerus head is within the glenoid. There is mild joint space loss identified in the glenohumeral joint, acromioclavicular joint. There is no acute fracture-dislocation identified. IMPRESSION: No acute findings. Electronically signed by: Osman Montez MD (03/21/2020 9:07 AM) [id number] DICTATED AND SIGNED BY: OSMAN MONTEZ MD DATE: 03/21/20 0907 CC: KUMAR REDMOND DO; SHIRLEY ARGUETA DO ~ Heart Score: Risk Factors: Risk Factors: DM, Current or recent (<one month) smoker, HTN, HLP, family history of CAD, obesity. Risk Scores: Score 0 - 3: 2.5% MACE over next 6 weeks - Discharge Home Score 4 - 6: 20.3% MACE over next 6 weeks - Admit for Clinical Observation Score 7 - 10: 72.7% MACE over next 6 weeks - Early Invasive Strategies Course & Med Decision Making: Course & Med Decision Making Pertinent Labs and Imaging studies reviewed. (See chart for details) The patient's shoulder x-ray is negative for acute findings. She has reasonable motion, so I am hopeful that this is just a strain. I cannot rule out a partial rotator cuff tear. She is seeing a specialist in the next week. She is stable for discharge at this time. [] Dragon Disclaimer: Dragon Disclaimer: This electronic medical record was generated, in whole or in part, using a voice recognition dictation system. Departure Departure: Impression: Primary Impression: Right anterior shoulder pain Disposition: 01 DC HOME SELF CARE/HOMELESS Condition: STABLE Referrals: SHIRLEY ARGUETA DO (PCP) Patient Instructions: Shoulder Pain, [id number] KUMAR REDMOND DO Mar 21, 2020 08:58
--- NOTE | 2020-03-21 09:10 | RAD ---
Examination: 2 views of the right shoulder HISTORY: History of fall, pain COMPARISON: 01/10/2020 FINDINGS: The humerus head is within the glenoid. There is mild joint space loss identified in the glenohumeral joint, acromioclavicular joint. There is no acute fracture-dislocation identified. IMPRESSION: No acute findings. Electronically signed by: Osman Montez MD (03/21/2020 9:07 AM) [id number]
== END 2020-03-21 09:45 | disposition home or self-care (01) ==
LOC: ER 08:24
DX: M25.511 Pain in right shoulder (principal); E11.9 Type 2 diabetes mellitus without complications; G43.909 Migraine, unspecified, not intractable, without status migrainosus; Z88.8 Allergy status to other drugs, medicaments and biological substances; W18.39XA Other fall on same level, initial encounter; Y93.89 Activity, other specified; Y92.89 Other specified places as the place of occurrence of the external cause; Y99.8 Other external cause status
CPT/HCPCS: 73030; 99283

== ENCOUNTER 2020-07-13 07:57 | Emergency (ER) | payer MEDICARE ==
[~2020-07-13] VITALS: Ht 162.6 cm; Wt 86.0 kg
[2020-07-13 08:02] VITALS: BP 106/67
--- NOTE | 2020-07-13 08:35 | PHYS DOC ---
Past History Past Medical History: Diabetes, Migraines Additional Past Medical Histor: TENSION HEADACHES, kidney disease Past Surgical History: Cholecystectomy Additional Past Surgical Histo: BREAST REDUCTION, bilateral rotator cuff Smoking: Non-smoker Alcohol Use: None Drug Use: None General Adult EDM: Chief Complaint: FOOT INJURY PAIN HPI: HPI: Patient is a 70 year old female who presents with left foot pain. She states the pain began last Sunday and came on gradually with no inciting incident or trauma. She denies any history of left foot or ankle pain or any prior ankle or foot surgery. She has a prescription for oxycodone for chronic back pain which she takes as needed but has not helped this current presentation. The pain is worse near the heel on the plantar surface of the foot. She says there is also pain starting at the toes that radiates proximally with inversion at the ankle. She notes that it is slightly swollen compared to the right. Denies fever, chills, redness or other signs of infection. Review of Systems: Review of Systems: Constitutional: Denies fever or chills Eyes: Denies redness or eye pain HENT: Denies nasal congestion or sore throat Respiratory: Denies cough or shortness of breath Cardiovascular: Denies chest pain or palpitations GI: Denies abdominal pain, nausea, or vomiting : Denies dysuria or hematuria Musculoskeletal: Notes left foot pain. Denies pain or any other problems with ankle or knee. Integument: Denies rash or skin lesions Neurologic: Denies headache, focal weakness or sensory changes Complete systems were reviewed and found to be within normal limits, except as documented in this note. Allergies: Allergies: Allergies Coded Allergies Type Severity Reaction Last Updated Verified [id number]-Vmf Reductase Inhibitor Allergy Mild CRAMPS 07/13/20 Yes eucalyptus Allergy Unknown 07/13/20 Yes Uncoded Allergies Type Severity Reaction Last Updated Verified TAPE Allergy Unknown 07/13/20 Physical Exam: PE: Constitutional: Well developed, well nourished, no acute distress, non-toxic appearance HENT: Normocephalic, atraumatic Eyes: PERRL, EOMI, conjunctiva normal, no discharge Neck: Normal range of motion, no tenderness, supple Lungs & Thorax: No respiratory distress, equal chest rise and fall Abdomen: Soft, no tenderness Skin: Warm, dry, no erythema, no rash Back: No tenderness, no CVA tenderness Extremities: Left plantar foot tenderness, ROM intact, left slightly edematous compared to right Neurologic: Alert and oriented X 3, normal motor function, normal sensory function, no focal deficits noted Psychologic: Affect normal, judgment normal Current Patient Data: Vital Signs: Vital Signs Date Time Temp Pulse Resp B/P (MAP) Pulse Ox O2 Delivery O2 Flow Rate FiO2 07/13/20 08:02 98.3 66 16 106/67 (80) 99 EKG: EKG: [] Radiology/Procedures: Radiology/Procedures: PROCEDURE: FOOT LEFT 3V XR FOOT_LEFT 3 VIEWS History: Reason: LATERAL 5TH METATARSAL PAIN. / Spl. Instructions: / History: Comparison: None. Technique: 3 views of the left foot. Findings: Decreased osseous mineralization. No fracture or dislocation. Mild degenerative changes at the first metatarsophalangeal joint. No aggressive osseous or erosive process. Prominent plantar calcaneal and Achilles insertion enthesophytes. Dorsal midfoot soft tissue swelling. Impression: 1. Mild degenerative changes of the left foot without acute osseous abnormality. Electronically signed by: Jam Childress MD (07/13/2020 8:42 AM) [facility] Course & Med Decision Making: Course & Med Decision Making Pertinent Imaging studies reviewed. (See chart for details) Patient presents with history of atraumatic foot pain x 4 days. Patient reports had p Hernando Disclaimer: Hernando Disclaimer: This electronic medical record was generated, in whole or in part, using a voice recognition dictation system. Departure Departure: Impression: Primary Impression: Foot pain, left Disposition: 01 DC HOME SELF CARE/HOMELESS Condition: STABLE Referrals: SHIRLEY ARGUETA DO (PCP) Patient Instructions: Arthritis, Nonspecific, [id number], Cast Shoe, Elastic Bandage and RICE, Plantar Fasciitis (Heel Spur Syndrome) with [facility] Additional Instructions: Take over the counter anti-inflammatory medication including Ibuprofen or naproxen for pain. Take previously prescribed pain medication as directed. Call and make an appointment to see a learning support specialist (abstract manager)- [facility] [address] [place], [place] BRANDON VELASQUEZ DO Jul 13, 2020 08:35
--- NOTE | 2020-07-13 08:44 | RAD ---
XR FOOT_LEFT 3 VIEWS History: Reason: LATERAL 5TH METATARSAL PAIN. / Spl. Instructions: / History: Comparison: None. Technique: 3 views of the left foot. Findings: Decreased osseous mineralization. No fracture or dislocation. Mild degenerative changes at the first metatarsophalangeal joint. No aggressive osseous or erosive process. Prominent plantar calcaneal and Achilles insertion enthesophytes. Dorsal midfoot soft tissue swelling. Impression: 1. Mild degenerative changes of the left foot without acute osseous abnormality. Electronically signed by: Jam Childress MD (07/13/2020 8:42 AM) [facility]
== END 2020-07-13 09:03 | disposition home or self-care (01) ==
LOC: ER 07:57
DX: M79.672 Pain in left foot (principal); R60.0 Localized edema; E11.9 Type 2 diabetes mellitus without complications; G43.909 Migraine, unspecified, not intractable, without status migrainosus; Z88.8 Allergy status to other drugs, medicaments and biological substances
CPT/HCPCS: 73630; 99283